=== PATIENT | female | born 1995 | race Caucasian/White ===

== ENCOUNTER 2024-10-12 03:27 | Emergency (ER) | payer BC ==
[~2024-10-12] VITALS: Ht 170.2 cm; Wt 63.6 kg
--- NOTE | 2024-10-12 03:32 | Physician Documentation ---
History of Present Illness ~ Stated Complaint: POISON OAK Time Seen by MD: 03:31 OK to notify your PCP?: Yes Primary Medical Doctor: KAREN Source: patient, RN/, RN notes reviewed, old records Mode of Arrival: POV Exam Limitations: no limitations HPI This patient is a 29 y/o female who presents to ED with chief complaint of rash. Patient reports that 6 days ago she started developing a red, itchy rash after she had hugged a friend who was exposed to poison lashae. After hugging her friend, the rash quickly started to appear and is mainly localized to her right shoulder and her right armpit. She does state the rash is itchy but not particularly painful. She denies any exposure to other known allergens. Patient denies any other associated symptoms at this time. Patient denies any other alleviating or exacerbating factors. Medication Reconciliation Allergies: Coded Allergies: No Known Allergies (Unverified , 10/12/24) Scheduled Prednisone* (Prednisone*), 3 TAB PO DAILY Triamcinolone Acetonide 0.5% Crm* (Kenalog 0.5% Crm*), 1 APPLIC TOP Q12H Past Medical History Past Medical History: No Pertinent History Past Surgical History: no surgical history Smoking Status: Never smoker Alcohol Use: None Drug Use: none Lives In: Home Occupation: employed Review of Systems All Other Systems at this time: Reviewed and Negative Integumentary: Reports: rash, itching Physical Exam Vital Signs: RN Vital Signs have been reviewed: Yes Physical Exam General: The patient is well developed, well nourished, nontoxic appearing and is in no acute distress. Skin: There is a red, erythematous rash to the right shoulder and right axilla. Otherwise skin is pink, warm and dry. HEENT: Head was normocephalic and atraumatic. Eyes - pupils equal, round, reactive to light and accommodation. Extraocular movements were intact. Conjunctivae were nonicteric. Ears - bilateral tympanic membranes were normal. The mouth and oropharynx were clear with moist mucous membranes. There were no pharyngeal exudates or erythema. Neck: Supple and nontender. There was no jugular venous distention, lymphadenopathy, thyromegaly or masses. Chest: Clear to auscultation bilaterally without wheezes, rales or rhonchi. No accessory muscle use. No dullness to percussion. Heart: Rate regular and rhythmic. S1, S2. No murmurs. Palpation of the chest wall was normal. No rubs or thrills. Abdomen: Soft, nontender and nondistended. Positive bowel sounds. No guarding or rebound. No hepatosplenomegaly or palpable masses. Extremities: No cyanosis, clubbing or edema. The patient moves all extremities. Pulses were equal and symmetric. Neurologic: Cranial nerves II-XII were intact. Sensation was intact to light touch throughout. Motor strength was 5/5 in all four extremities. Deep tendon reflexes were intact in both upper and lower extremities. Psychologic: The patient was oriented to person, place and time. The patient demonstrated appropriate judgement and insight. Progress Results/Orders Reviewed/noted all lab results: Yes Results/Orders Orders - JEFFREY GRIFFITH MD Triamcinolone Acet 0.5% Crm (Kenalog 0.5 (10/12/24 03:35) Completed Orders - JEFFREY GRIFFITH MD Prednisone Tablet (Prednisone Tablet) (10/12/24 03:35) Vital Signs 10/12/24 03:33 Temp 98.6 Pulse 81 Resp 16 B/P (MAP) 127/79 Pulse Ox 98 O2 Flow Rate 0 Re-Evaluation Re-Evaluation : Re-Evaluation: Improved Progress He was seen and examined. Patient is given reassurance. The patient was exposed to poison oak. She has mild rash on her right upper extremity and a xilla area. Patient was given steroid pills prescription for the same as well as Kenalog cream prescription for the same. There was no vesicles no weeping localized rash. Patient was discharged home. Patient has a nurse no exposure, unlikely infectious etiology. Most likely contact dermatitis Medical Decision Making Additional info obtained from: old records Differential Dx:Considerations: Include: Atopic dermatitis, Candidiasis, Cont act dermatitis, Drug reaction, Psoriaisis, Urticaria, Viral exanthema Departure Time of Disposition: 03:36 Disposition: 01 HOME / SELF CARE / HOMELESS Impression: Primary Impression: Poison oak dermatitis Condition: Stable Discharge Instructions: Poison [place] Dermatitis Referrals: NO PRIMARY CARE PROVIDER (PCP) Prescriptions Triamcinolone Acetonide 0.5% Crm* (Kenalog 0.5% Crm*) 15 Gm Tube 1 APPLIC TOP Q12H for 30 Days, #30 GM 2 Refills apply to affected area(s) Prov: JEFFREY GRIFFITH MD 10/12/24 Prednisone* (Prednisone*) 20 Mg Tablet 3 TAB PO DAILY for 10 Days, #25 TAB Prov: JEFFREY GRIFFITH MD 10/12/24 Education Educated: Patient Educated regarding: diagnosis, need for follow up, other Signature Scribe Signature: Scribed for Jeffrey Griffith MD by Becka Tao. 10/05/24 03:36 Attestation: The note accurately reflects work and decisions made by me.Jeffrey Griffith MD 10/12/24 03:32 JEFFREY GRIFFITH MD Oct 12, 2024 03:32
[2024-10-12 03:33] VITALS: BP 127/79; PULSE 81; RESP 16; TEMP 98.6; O2SAT 98
[2024-10-12] MEDS ORDERED: TRIA15CR61 TOP (03:35)
[2024-10-12] MEDS ORDERED: PRED20TA PO (03:35)
[2024-10-12] MEDS ORDERED: triamcinolone acetonide 0.5% cream 15gm TP SCH (03:35)
[2024-10-12] MEDS: predniSONE 20 mg tablet PO ONE (03:50)
== END 2024-10-12 07:32 | disposition home or self-care (01) ==
LOC: ER 03:29
DX: L23.7 Allergic contact dermatitis due to plants, except food (principal)
CPT/HCPCS: 99283; J7512

== ENCOUNTER 2024-12-11 10:45 | Outpatient (CLI) | payer BC ==
[~2024-12-11 10:45] MED LIST: TRIA15CR61 TOP
[2024-12-11 11:13] LABS: MEAN PLATELET VOLUME 8.3 FL (7.4-10.4); RED CELL DISTRIBUTION WIDTH 12.6 % (11.5-14.5)
[2024-12-11 11:24] LABS: % IRON SATURATION 36 % (11-46)
[2024-12-11 11:34] LABS: CREATININE 0.56 MG/DL (0.40-0.90); TOTAL CARBON DIOXIDE 31.9 MMOL/L (24-32); eGFR > 90 ML/MIN
== END 2024-12-11 23:59 | disposition home or self-care (01) ==
LOC: LAB 10:45
PROVIDERS: ATTEND Nurse Practitioner
DX: K91.2 Postsurgical malabsorption, not elsewhere classified (principal); Z13.220 Encounter for screening for lipoid disorders; R53.83 Other fatigue
CPT/HCPCS: 36415; 80053; 82306; 82607; 82746; 83036; 83540; 83550; 83735; 84439; 84443; 84550; 85025

== ENCOUNTER 2025-01-29 09:41 | Outpatient (CLI) | payer BC ==
--- NOTE | 2025-01-29 11:19 | RADIOLOGY REPORT ---
INDICATION: CHOLESTEROLOSIS OF GALLBLADDER TECHNIQUE: Multiple real-time sonographic images of the abdomen were obtained. COMPARISON: None FINDINGS: Liver is homogenous in echogenicity. The liver measures 14.7 cm. No intrahepatic biliary ductal dilatation is noted. The gallbladder wall measures 0.5 cm and is unremarkable. Multiple gallbladder polyps are present measuring up to 0.5 cm.. No pericholecystic fluid or edema. The common duct measures 0.3 cm and is unremarkable. The right kidney measures 10.3 cm. No hydronephrosis. The left kidney measures 11.7 cm. No hydronephrosis. The spleen measures 8.8 cm, within normal limits. The echogenicity is within normal limits. The pancreas is not well visualized due to obscuration from bowel gas. The visualized portions of the IVC and aorta are grossly unremarkable. IMPRESSION: Multiple gallbladder polyps measuring up to 0.5 cm. FOLLOW UP RECOMMENDATIONS: Low-risk polyps (pedunculated with a thick or wide stalk, or sessile): < 6 mm: no follow-up 7-9 mm follow-up ultrasound at 12 months 10-14 mm: follow-up ultrasound at 6, 12, 24, and 36 months vs surgical consult > 15 mm: surgical consult Octavio A, Cindy C, Mariza J et al. Management of Incidentally Detected Gallbladder Polyps: Society of Radiologists in Ultrasound Consensus Conference Recommendations. Radiology. 2021;:[id number].
== END 2025-01-29 23:59 | disposition home or self-care (01) ==
LOC: RAD 09:41
PROVIDERS: ATTEND Nurse Practitioner
DX: K82.4 Cholesterolosis of gallbladder (principal)
CPT/HCPCS: 76700